=== PATIENT | female | born 1980 | race American Indian/Alaskan Native ===

== ENCOUNTER 2020-07-17 20:33 | Emergency (ER) | payer SELFPAY | END 2020-07-17 23:50 | disposition left against medical advice (07) | LOC: ED 20:33 | DX: M25.511 Pain in right shoulder (principal); Z53.21 Procedure and treatment not carried out due to patient leaving prior to being seen by health care provider ==

== ENCOUNTER 2020-08-28 20:13 | Emergency (ER) | payer SELFPAY ==
[2020-08-29 02:08] VITALS: BP 125/69
[2020-08-29] MEDS ORDERED: traMADol 50 MG TAB PO ONE (04:44)
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
== END 2020-08-29 05:25 | disposition home or self-care (01) ==
LOC: ED 20:13
DX: M79.605 Pain in left leg (principal); F17.200 Nicotine dependence, unspecified, uncomplicated; Z79.899 Other long term (current) drug therapy; Z91.048 Other nonmedicinal substance allergy status
CPT/HCPCS: 99283

== ENCOUNTER 2022-04-09 12:35 | Emergency (ER) | payer SELFPAY ==
[2022-04-09 13:40] VITALS: BP 102/63
[2022-04-09 15:13] LABS: Bacteria,Urine 1+ /HPF (Negative); Hyaline Casts,Urine 4 /LPF; Mucus,Urine 3+ /HPF; Sperm,Urine FEW /HPF (NP)
[2022-04-09 15:17] LABS: Color,Urine Dark Yellow (Yellow)
[2022-04-09 15:18] LABS: Bilirubin,Urine Negative (Negative)
[2022-04-09 15:19] LABS: Blood,Urine Moderate (Negative); HCG Qualitative,Urine Negative (Negative); Urobilinogen,Urine < 2.0 mg/dL (<2.0)
[2022-04-09] MEDS ORDERED: IBUPROFEN 800 MG TAB PO ONE (15:50)
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
== END 2022-04-09 16:00 | disposition home or self-care (01) ==
LOC: ED 12:35
DX: N92.6 Irregular menstruation, unspecified (principal)
CPT/HCPCS: 81001; 81025; 99283

== ENCOUNTER 2022-04-23 16:03 | Emergency (ER) | payer SELFPAY ==
[2022-04-23 16:24] VITALS: BP 142/99
== END 2022-04-23 23:00 | disposition left against medical advice (07) ==
LOC: ED 16:03
DX: R10.9 Unspecified abdominal pain (principal); Z53.21 Procedure and treatment not carried out due to patient leaving prior to being seen by health care provider